=== PATIENT | female | born 1995 | race Two or more races ===

== ENCOUNTER 2022-12-28 08:33 | Emergency (ER) | payer OTHER ==
[~2022-12-28] VITALS: Ht 167.6 cm; Wt 81.6 kg
[2022-12-28] MEDS ORDERED: BACTRIM DS TAB1 EACH PO (09:28)
[2022-12-28] MEDS ORDERED: DICLOFENAC POTA50 MG PO (09:28)
[2022-12-28] MEDS ORDERED: MUPIROCIN15 GM TOP (09:28)
== END 2022-12-28 09:33 | disposition home or self-care (01) ==
LOC: ER 08:33
DX: S80.11XA Contusion of right lower leg, initial encounter (principal); W19.XXXA Unspecified fall, initial encounter; Y93.9 Activity, unspecified; Y92.89 Other specified places as the place of occurrence of the external cause; Y99.9 Unspecified external cause status; Z88.0 Allergy status to penicillin

== ENCOUNTER 2024-06-02 08:19 | Emergency (ER) | payer OTHER ==
[~2024-06-02] VITALS: Ht 167.6 cm; Wt 90.7 kg
[~2024-06-02 08:19] MED LIST: BACTRIM DS TAB1 EACH PO; DICLOFENAC POTA50 MG PO; MUPIROCIN15 GM TOP
[2024-06-02 09:59] LABS: URINE APPEARANCE Cloudy; URINE BILIRRUBIN Negative (NEGATIVE); URINE COLOR Yellow; URINE GLUCOSE Negative (NEGATIVE); URINE LEUKOCYTE Large; URINE NITRATE Negative; URINE PROTEIN 30 (NEGATIVE); URINE UROBILINOGEN 0.2 E.U./dl
[2024-06-02 10:05] LABS: URINE BACTERIA 282.7 uL (0.0-1933); URINE EPITHELIAL CELLS 7.7 uL (0.0-38.8); URINE RBC 40.6 uL (0.0-20.8); URINE WBC 1967.7 uL (0.0-23.2)
[2024-06-02 10:49] LABS: URINE BLOOD TRACE; URINE CAST 0.44 uL (0.0-1.40); URINE KETONE 40 (NEGATIVE)
[2024-06-02] MEDS ORDERED: MACROBID 100 M100 MG PO (11:06)
== END 2024-06-02 11:16 | disposition home or self-care (01) ==
LOC: ER 08:21
PROVIDERS: Emergency Medicine
DX: O23.31 Infections of other parts of urinary tract in pregnancy, first trimester (principal); N39.0 Urinary tract infection, site not specified; Z3A.08 8 weeks gestation of pregnancy; Z88.0 Allergy status to penicillin

== ENCOUNTER 2024-12-24 15:47 | Outpatient (CLI) | payer OTHER ==
[~2024-12-24 15:47] MED LIST changes: +MACROBID 100 M100 MG PO
== END 2024-12-24 16:48 | disposition home or self-care (01) ==
LOC: NST 15:47
PROVIDERS: ATTEND Obstetrics & Gynecology Gynecology
DX: Z34.83 Encounter for supervision of other normal pregnancy, third trimester (principal)

== ENCOUNTER → 2025-01-08 | Outpatient (CLI) | payer OTHER ==
[~2025-01-08] MED LIST changes: +PRENATABS RX T1 EACH PO
== END | disposition home or self-care (01) ==
LOC: NST 08:17
PROVIDERS: ATTEND Obstetrics & Gynecology Maternal & Fetal Medicine
DX: Z34.83 Encounter for supervision of other normal pregnancy, third trimester (principal)

== ENCOUNTER 2025-01-09 07:06 | Inpatient (IN) | payer OTHER ==
[~2025-01-09] VITALS: Ht 165.1 cm; Wt 3.2 kg
[~2025-01-09 07:06] MED LIST changes: -PRENATABS RX T1 EACH PO
[2025-01-09 07:17] VITALS: BP 120/83
[2025-01-09] MEDS ORDERED: PRENATABS RX T1 EACH PO (07:36)
[2025-01-09] MEDS ORDERED: OXYTOCIN 500 ML IV SCH (08:00)
[2025-01-09] MEDS ORDERED: RINGERS SOLUTION,LACTATED 1,000 ML IV SCH (08:00)
[2025-01-09 08:07] LABS: BASO % 0.2 % (0.1-1.2); EOS # 0.04 (0.04-0.54); EOS % 0.3 % (0.7-7.0); LYMPH # 2.30 (1.18-3.74); LYMPH % 18.7 % (19.3-53.1); MEAN PLATELET VOLUME 10.70 fl (9.4-12.4); MONO # 0.71 (0.24-0.82); MONO % 5.8 % (4.7-12.5); NEUT # 9.18 (1.56-6.13); NEUT % 74.5 % (34.0-71.1); RED CELL DISTRIBUTION WIDTH 13.6 % (11.6-14.4)
[2025-01-09] MEDS ORDERED: TERBUTALINE SULFATE 1 MG/ML AMPUL ONE (08:17)
[2025-01-09] MEDS ORDERED: CLINDAMYCIN PHOSPHATE 150 MG/ML (600mg) ONE (08:37)
[2025-01-09] MEDS ORDERED: GENTAMICIN SULFATE 40 MG/ML VIAL ONE (08:38)
[2025-01-09 08:39] LABS: INR 0.96
[2025-01-09] MEDS ORDERED: OXYTOCIN 10 UNITS/ML VIAL ONE ×2 (08:41→12:16)
[2025-01-09] MEDS ORDERED: ERYTHROMYCIN BASE OPHT 1GM EACH TUBE OP ONE (08:41)
[2025-01-09 09:06] LABS: ALT/SGPT 30.0 U/L (12-78); AST/SGOT 21.0 U/L (15-37); BILIRUBIN TOTAL 0.39 mg/dL (0.3-1.2); BUN CREA RATIO 18.0 (7.0-25.0); CREATININE SERUM 0.51 mg/dL (0.55-1.02); GFR 141.59; GLOBULINA 3.9 G/DL (2.4-3.5); GLUCOSE FASTING 72.0 mg/dL (65-100); OSMOLALITY SERUM 273.0 MOSM/KG (275-295)
[2025-01-09] MEDS ORDERED: MORPHINE SULFATE 4 MG/ML VIAL IV ONE ×2 (09:55→10:25)
[2025-01-09] MEDS ORDERED: TERBUTALINE SULFATE 1 MG/ML AMPUL SUBCUTANEO ONE (10:15)
[2025-01-09] MEDS ORDERED: OXYTOCIN 1,000 ML IV ONE (11:15)
[2025-01-09] MEDS ORDERED: KETOROLAC TROMETHAMINE 30 MG VIAL IV SCH (12:00)
[2025-01-09] MEDS ORDERED: KETOROLAC TROMETHAMINE 30 MG VIAL ONE (12:15)
[2025-01-09] MEDS ORDERED: KETOROLAC TROMETHAMINE 30 MG VIAL IV ONE (12:20)
[2025-01-09] MEDS ORDERED: MORPHINE SULFATE 4 MG/ML CARTRIDGE IV SCH (13:00)
[2025-01-09 13:30] VITALS: BP 118/88
[2025-01-09 16:00] VITALS: BP 123/82
[2025-01-09] MEDS ORDERED: CLINDAMYCIN PHOSPHATE 150 MG/ML (900mg) IV ONE (16:00)
[2025-01-09] MEDS ORDERED: GENTAMICIN SULFATE 40 MG/ML VIAL IV ONE (16:00)
[2025-01-09 20:18] VITALS: BP 117/78
[2025-01-10] VITALS: BP 121/84
[2025-01-10] MEDS ORDERED: ACETAMINOPHEN 500 MG GEL..CAP PO SCH (06:00)
[2025-01-10 06:51] LABS: BASO % 0.2 % (0.1-1.2); EOS # 0.05 (0.04-0.54); EOS % 0.4 % (0.7-7.0); LYMPH # 2.35 (1.18-3.74); LYMPH % 20.7 % (19.3-53.1); MEAN PLATELET VOLUME 11.10 fl (9.4-12.4); MONO # 0.61 (0.24-0.82); MONO % 5.4 % (4.7-12.5); NEUT # 8.27 (1.56-6.13); NEUT % 72.9 % (34.0-71.1); RED CELL DISTRIBUTION WIDTH 13.8 % (11.6-14.4)
[2025-01-10] MEDS ORDERED: SIMETHICONE 125 MG CAPSULE PO SCH (09:00)
[2025-01-10] MEDS ORDERED: PNV,CALCIUM 72/IRON/FOLIC ACID 1 TAB TABLET PO SCH (09:00)
[2025-01-10] MEDS ORDERED: GABAPENTIN 300 MG CAPSULE PO SCH (09:00)
[2025-01-10] MEDS ORDERED: DOCUSATE SODIUM 100MG CAP PO SCH (09:00)
[2025-01-10 09:36] VITALS: BP 104/66
[2025-01-10 16:37] VITALS: BP 118/81; O2SAT 97
[2025-01-11 00:33] VITALS: BP 125/82; O2SAT 98
[2025-01-11 08:58] VITALS: BP 120/82; O2SAT 97
== END 2025-01-11 15:02 | disposition home or self-care (01) | DRG 788 ==
LOC: OB/GYN 07:06 → O/R 07:06 → LDR 07:06 → O/R 09:33 → OB/GYN 11:50
PROVIDERS: Obstetrics & Gynecology Gynecology; ADMIT Obstetrics & Gynecology Maternal & Fetal Medicine; ATTEND Obstetrics & Gynecology Maternal & Fetal Medicine
PROC: 4A1HXCZ Monitoring of Products of Conception, Cardiac Rate, External Approach (ICD-10-PCS; 2025-01-09)
PROC: 10D00Z1 Extraction of Products of Conception, Low, Open Approach (ICD-10-PCS; principal; 2025-01-09 11:00)
DX: O76 Abnormality in fetal heart rate and rhythm complicating labor and delivery (principal); O36.8330 Maternal care for abnormalities of the fetal heart rate or rhythm, third trimester, not applicable or unspecified; O77.0 Labor and delivery complicated by meconium in amniotic fluid; O69.81X0 Labor and delivery complicated by cord around neck, without compression, not applicable or unspecified; Z3A.39 39 weeks gestation of pregnancy; Z37.0 Single live birth